=== PATIENT | male | born 2000 | race Caucasian/White ===

== ENCOUNTER 2019-06-21 15:21 | Emergency (ER) | payer OTHER ==
[2019-06-21 15:55] VITALS: BP 138/60
[2019-06-21] MEDS ORDERED: Acetaminophen TAB* 325 MG PO ONE (15:58)
[2019-06-21 16:07] LABS: Influenza A Molecular POSITIVE (Negative)
--- NOTE | 2019-06-21 16:13 | UC ---
Respiratory Complaint HPI - HPI Summary HPI Summary: 18 yo male with hx of asthma with < 48 hr hx of cough/fever/chills/myalgias and MESSINA no cp or sob - History of Current Complaint Chief Complaint: UCRespiratory Stated Complaint: HEADACHE, CHILLS, COUGH Time Seen by Provider: 06/21/19 15:55 Hx Obtained From: Patient Onset/Duration: Gradual Onset, Lasting Days Timing: Constant Severity Initially: Mild Severity Currently: Moderate Pain Intensity: 7 Pain Scale Used: 0-10 Numeric Character: Cough: Nonproductive Aggravating Factors: Nothing Alleviating Factors: Nothing Associated Signs And Symptoms: Positive: Fever, Chills, Nasal Congestion, Sinus Discomfort - Allergies/Home Medications Allergies/Adverse Reactions: Allergies Allergy/AdvReac Type Severity Reaction Status Date / Time amoxicillin Allergy Swelling Verified 06/21/19 15:52 Of Face,Lips,& Throat PMH/Surg Hx/FS Hx/Imm Hx Previously Healthy: Yes Respiratory History: Asthma - Surgical History Surgical History: Yes Surgery Procedure, Year, and Place: eye- 2006-EYE MUSCLE SURGERY[facility], [facility] - Family History Known Family History: Positive: None, Non-Contributory - Social History Alcohol Use: None Substance Use Type: None Smoking Status (MU): Light Every Day Tobacco Smoker Amount Used/How Often: COUPLE CIGS/DAY - Immunization History Vaccination Up to Date: Yes Review of Systems All Other Systems Reviewed And Are Negative: Yes Constitutional: Positive: Fever, Chills, Fatigue Skin: Positive: Negative Eyes: Positive: Negative ENT: Positive: Nasal Discharge, Sinus Congestion, Sinus Pain/Tenderness Respiratory: Positive: Cough Cardiovascular: Positive: Negative Gastrointestinal: Positive: Negative Genitourinary: Positive: Negative Motor: Positive: Negative Musculoskeletal: Positive: Myalgia Neurological: Positive: Headache Psychological: Positive: Negative Physical Exam Triage Information Reviewed: Yes Appearance: Well-Appearing, No Pain Distress, Well-Nourished Vital Signs: Initial Vital Signs Temp 101.4 F 06/21/19 15:52 Pulse 122 06/21/19 15:52 Resp 18 06/21/19 15:52 BP 138/60 06/21/19 15:52 Pulse Ox 99 06/21/19 15:52 Vital Signs Reviewed: Yes Eyes: Positive: Conjunctiva Clear ENT: Positive: Hearing grossly normal, Nasal congestion, Nasal drainage, Uvula midline. Negative: Trismus, Muffled voice, Hoarse voice Dental Exam: Normal Neck: Positive: Supple, Nontender, No Lymphadenopathy Respiratory: Positive: Lungs clear, Normal breath sounds, No respiratory distress, No accessory muscle use Cardiovascular: Positive: RRR, No Murmur Musculoskeletal: Positive: ROM Intact, No Edema Neurological: Positive: Alert Psychological Exam: Normal Skin Exam: Normal Diagnostics - Laboratory Lab Results: influenza A + Respiratory Course/Dx - Differential Dx/Diagnosis Provider Diagnosis: Influenza A Discharge ED - Sign-Out/Discharge Documenting (check all that apply): Patient Departure All imaging exams completed and their final reports reviewed: No Studies - Discharge Plan Condition: Stable Disposition: HOME Prescriptions: Oseltamivir CAP* [Tamiflu CAP*] 75 mg PO BID #10 cap predniSONE 20 mg TAB [Deltasone 20 MG TAB*] 40 mg PO DAILY #8 tab Patient Education Materials: Influenza (ED) Additional Instructions: Rest Fluids tyelenol or advil for fever Use your inhaler 2 puffs 4x day for 5 days recheck in 4 days if not better recheck sooner for worsening symptoms - Billing Disposition and Condition Condition: STABLE Disposition: Home
== END 2019-06-21 16:20 | disposition home or self-care (01) ==
LOC: UCCORT 15:21
DX: J10.1 Influenza due to other identified influenza virus with other respiratory manifestations (principal); J45.909 Unspecified asthma, uncomplicated; F17.210 Nicotine dependence, cigarettes, uncomplicated; Z88.0 Allergy status to penicillin
CPT/HCPCS: 99202; A9270-GY; G0463